=== PATIENT | male | born 1970 | race African-American/Black ===

== ENCOUNTER 2017-02-13 17:56 | Emergency (ER) | payer OTHER ==
[~2017-02-13] VITALS: Ht 170.2 cm; Wt 61.1 kg
[~2017-02-13 17:56] MED LIST: ASPIRIN E.C.81 M1 PO; LOPID600 M1 PO; Lopid PO; NOHOMEMEDS; SEROQUEL100 MG PO; SEROQUEL200 MG PO; TYLENOL325 M1 PO; ZOLOFT100 MG PO; Zoloft PO; ~No Medications
[2017-02-13] MEDS ORDERED: ZOFRAN ODT8 MG PO (22:14)
[2017-02-13] MEDS ORDERED: FIORICET,ESG1 TABLET PO (22:14)
[2017-02-13 23:29] VITALS: BP 103/64
== END 2017-02-13 23:45 | disposition home or self-care (01) ==
LOC: EME 17:56
DX: S06.2X1A Diffuse traumatic brain injury with loss of consciousness of 30 minutes or less, initial encounter (principal); Y09 Assault by unspecified means; Z72.0 Tobacco use
CPT/HCPCS: 70450; 99281; 99284

== ENCOUNTER 2017-02-17 09:12 | Emergency (ER) | payer OTHER ==
[~2017-02-17] VITALS: Ht 170.2 cm; Wt 61.0 kg
[~2017-02-17 09:12] MED LIST changes: +FIORICET,ESG1 TABLET PO; +ZOFRAN ODT8 MG PO
[2017-02-17] MEDS ORDERED: FLEXERIL10 MG PO (11:16)
[2017-02-17] MEDS ORDERED: NAPROSYN500 MG PO (11:16)
[2017-02-17 11:34] VITALS: BP 107/74
== END 2017-02-17 11:34 | disposition home or self-care (01) ==
LOC: EME 09:12
DX: S39.012A Strain of muscle, fascia and tendon of lower back, initial encounter (principal); M62.830 Muscle spasm of back; M46.1 Sacroiliitis, not elsewhere classified; Z71.6 Tobacco abuse counseling; Y09 Assault by unspecified means
CPT/HCPCS: 99281; 99284; J1885

== ENCOUNTER 2017-08-06 16:02 | Inpatient (IN) | payer OTHER ==
[~2017-08-06] VITALS: Ht 170.2 cm; Wt 59.6 kg
[~2017-08-06 16:02] MED LIST changes: +FLEXERIL10 MG PO; +NAPROSYN500 MG PO
[2017-08-06 18:11] LABS: HEMATOCRIT 41.2 % (38.0-50.0); MCH 29.1 PG (29.0-34.0); MCHC 32.5 G/DL (30.0-36.0); MCV 89.6 FL (86-99); MEAN PLAT.VOLUME 10.4 uM^3 (9.0-12.4); PLATELET COUNT 157 K/uL (156-360); RBC DIS.WIDTH-CV 13.4 % (11.8-14.6); WHITE BLOOD COUNT 9.7 K/uL (4.1-10.2)
[2017-08-06 18:22] LABS: CHLORIDE 110 mEq/L (99-109); POTASSIUM 4.1 mEq/L (3.7-5.4); SODIUM 145 mEq/L (136-147)
[2017-08-06 18:24] LABS: GLUCOSE 79 mg/dL (70-99)
[2017-08-06 18:25] LABS: ANION GAP 9 MEQ/L (2-14)
[2017-08-06 18:26] LABS: TOTAL BILIRUBIN 0.4 mg/dL (0.0-1.0)
[2017-08-06 18:27] LABS: ALKALINE PHOSPHATASE 64 IU/L (3-129); SERUM ETHYL ALCOHOL < 10 mg/dL
[2017-08-06 18:28] LABS: GFR ESTIMATE (CALCULATED) > 59 mL/min/
[2017-08-06 18:29] LABS: UREA NITROGEN (BUN) 14 mg/dL (9-23)
[2017-08-06 18:46] LABS: ADD MIUA? NO; BILIRUBIN NEGATIVE; BLOOD NEGATIVE; COLOR YELLOW ((YELLOW)); GLUCOSE (STRIP) NEGATIVE; KETONES NEGATIVE; LEUKOCYTES NEGATIVE; NITRITE NEGATIVE; PROTEIN (STRIP) NEGATIVE; SPECIFIC GRAVITY 1.025 (1.000-1.030); UCUL ADDED? NO; UROBILINOGEN 0.2 MG/DL (0.2-1.0)
[2017-08-06 19:16] VITALS: BP 121/74
[2017-08-06 19:21] VITALS: BP 105/60
[2017-08-06 19:33] LABS: AMPHETAMINE NEGATIVE (500 ng/mL); BARBITURATES NEGATIVE (200 ng/mL); BENZODIAZEPINES NEGATIVE (150 ng/mL); COCAINE PRESUMPTIVE POSITIVE (150 ng/mL); METHADONE NEGATIVE (200 ng/mL); METHAMPHETAMINE NEGATIVE (500 ng/mL); OPIATES (MORPHINE) NEGATIVE (100 ng/mL); OXYCODONE NEGATIVE (100 ng/mL); PHENCYCLIDINE NEGATIVE (25 ng/mL); PROPOXYPHENE NEGATIVE (300 ng/mL); THC CANNABINOIDS NEGATIVE (50 ng/mL); TRICYCLIC ANTIDEPRESSANTS NEGATIVE (300 ng/mL)
[2017-08-06 19:34] LABS: ADD MEDTOX COMMENT Y; INTERNAL CONTROLS VALID? YES
[2017-08-06] MEDS ORDERED: SEROQUEL200 MG PO (20:11)
[2017-08-06] MEDS ORDERED: ZOLOFT100 MG PO (20:11)
[2017-08-06] MEDS ORDERED: ZOLOFT50 MG PO (20:12)
[2017-08-06] MEDS ORDERED: MOTRIN400 MG PO (20:12)
[2017-08-07 07:58] VITALS: BP 114/63
[2017-08-07 15:40] VITALS: BP 107/61
[2017-08-08 08:04] VITALS: BP 116/70
[2017-08-08] MEDS ORDERED: SEROQUEL200 MG PO (13:16)
[2017-08-08] MEDS ORDERED: ZOLOFT100 MG PO (13:16)
== END 2017-08-08 15:05 | disposition home or self-care (01) | DRG 885 ==
LOC: EME 16:02 → EDOF 18:46 → 1WEST 18:46 → ENRESERV 19:14 → 1WEST 19:15
PROVIDERS: Emergency Medicine
DX: F33.9 Major depressive disorder, recurrent, unspecified (principal); R45.851 Suicidal ideations; F60.2 Antisocial personality disorder; F14.10 Cocaine abuse, uncomplicated; F17.200 Nicotine dependence, unspecified, uncomplicated
CPT/HCPCS: 80053; 81003; 84999; 85027; 90837; 99281; 99285; G0480

== ENCOUNTER 2017-08-09 14:18 | Emergency (ER) | payer OTHER ==
[~2017-08-09] VITALS: Ht 170.2 cm; Wt 62.8 kg
[~2017-08-09 14:18] MED LIST changes: +MOTRIN400 MG PO; +ZOLOFT50 MG PO
[2017-08-09 14:49] LABS: EOSINOPHIL (%) 0.3 % (0-5); HEMATOCRIT 39.1 % (38.0-50.0); IMMATURE GRANULOCYTE (%) 0.3 % (0.0-0.7); INSTRUMENT ABS NEUTROPHIL CT 8.2 K/uL; LYMPHOCYTE COUNT 2.7 K/uL (1.0-2.8); MCH 28.7 PG (29.0-34.0); MCHC 32.2 G/DL (30.0-36.0); MCV 89.1 FL (86-99); MEAN PLAT.VOLUME 10.2 uM^3 (9.0-12.4); MONOCYTE (%) 6.8 % (3-12); MONOCYTE COUNT 0.8 K/uL (0-0.8); NEUTROPHIL (%) 69.7 % (45-76); NEUTROPHIL COUNT 8.2 K/uL (1.8-6.4); PLATELET COUNT 165 K/uL (156-360); RBC DIS.WIDTH-CV 13.4 % (11.8-14.6); RBC DIS.WIDTH-SD 44.2 % (39-53); RED BLOOD COUNT 4.39 M/uL (4.00-5.50); WHITE BLOOD COUNT 11.8 K/uL (4.1-10.2)
[2017-08-09 14:56] LABS: CHLORIDE 108 mEq/L (99-109); POTASSIUM 3.9 mEq/L (3.7-5.4); SODIUM 144 mEq/L (136-147)
[2017-08-09 14:58] LABS: GLUCOSE 104 mg/dL (70-99)
[2017-08-09 14:59] LABS: ANION GAP 10 MEQ/L (2-14)
[2017-08-09 15:01] LABS: SERUM ETHYL ALCOHOL < 10 mg/dL
[2017-08-09 15:02] LABS: GFR ESTIMATE (CALCULATED) > 59 mL/min/
[2017-08-09 15:03] LABS: UREA NITROGEN (BUN) 13 mg/dL (9-23)
[2017-08-09 16:02] LABS: AMPHETAMINE NEGATIVE (500 ng/mL); BARBITURATES NEGATIVE (200 ng/mL); BENZODIAZEPINES NEGATIVE (150 ng/mL); COCAINE PRESUMPTIVE POSITIVE (150 ng/mL); INTERNAL CONTROLS VALID? YES; METHADONE NEGATIVE (200 ng/mL); METHAMPHETAMINE NEGATIVE (500 ng/mL); OPIATES (MORPHINE) NEGATIVE (100 ng/mL); OXYCODONE NEGATIVE (100 ng/mL); PHENCYCLIDINE NEGATIVE (25 ng/mL); PROPOXYPHENE NEGATIVE (300 ng/mL); THC CANNABINOIDS NEGATIVE (50 ng/mL); TRICYCLIC ANTIDEPRESSANTS NEGATIVE (300 ng/mL)
[2017-08-09 16:03] LABS: ADD MEDTOX COMMENT Y
[2017-08-09 17:04] VITALS: BP 102/66
== END 2017-08-09 17:08 | disposition home or self-care (01) ==
LOC: EME 14:18
PROVIDERS: Emergency Medicine
DX: F33.1 Major depressive disorder, recurrent, moderate (principal); F60.2 Antisocial personality disorder; F10.99 Alcohol use, unspecified with unspecified alcohol-induced disorder; F14.90 Cocaine use, unspecified, uncomplicated; Z76.5 Malingerer [conscious simulation]; Z63.0 Problems in relationship with spouse or partner; Z59.0 Homelessness; F17.200 Nicotine dependence, unspecified, uncomplicated
CPT/HCPCS: 80048; 84999; 85025; 90839; 99281; 99285; G0480

== ENCOUNTER 2018-05-04 12:37 | Inpatient (IN) | payer OTHER ==
[~2018-05-04] VITALS: Ht 170.2 cm; Wt 71.4 kg
[2018-05-04 13:25] LABS: HEMATOCRIT 40.8 % (38.0-50.0); HEMOGLOBIN 13.3 G/DL (12.5-16.6); MCHC 32.6 G/DL (30.0-36.0); MCV 89.1 FL (86-99); PLATELET COUNT 155 K/uL (156-360); RBC DIS.WIDTH-SD 45.9 % (39-53); RED BLOOD COUNT 4.58 M/uL (4.00-5.50); WHITE BLOOD COUNT 18.2 K/uL (4.1-10.2)
[2018-05-04 13:26] LABS: AMPHETAMINE NEGATIVE (500 ng/mL); BARBITURATES NEGATIVE (200 ng/mL); BENZODIAZEPINES NEGATIVE (150 ng/mL); BUPRENORPHINE NEGATIVE (10 ng/mL); COCAINE PRESUMPTIVE POSITIVE (150 ng/mL); METHADONE NEGATIVE (200 ng/mL); METHAMPHETAMINE NEGATIVE (500 ng/mL); OPIATES (MORPHINE) NEGATIVE (100 ng/mL); OXYCODONE NEGATIVE (100 ng/mL); PHENCYCLIDINE NEGATIVE (25 ng/mL); PROPOXYPHENE NEGATIVE (300 ng/mL); THC CANNABINOIDS NEGATIVE (50 ng/mL); TRICYCLIC ANTIDEPRESSANTS NEGATIVE (300 ng/mL)
[2018-05-04 13:36] LABS: CHLORIDE 109 mEq/L (99-109); POTASSIUM 4.3 mEq/L (3.7-5.4); SODIUM 145 mEq/L (136-147)
[2018-05-04 13:38] LABS: GLUCOSE 81 mg/dL (70-99)
[2018-05-04 13:41] LABS: SERUM ETHYL ALCOHOL < 10 mg/dL
[2018-05-04 13:42] LABS: CREATININE 1.4 mg/dL (0.6-1.3); GFR ESTIMATE (CALCULATED) > 59 mL/min/ (58.99-99999)
[2018-05-04 13:43] LABS: UREA NITROGEN (BUN) 24 mg/dL (9-23)
[2018-05-04 16:59] VITALS: BP 108/56
[2018-05-05 07:35] VITALS: BP 97/63
[2018-05-05 14:50] VITALS: BP 115/58
[2018-05-06 07:24] VITALS: BP 108/59
[2018-05-06 15:04] VITALS: BP 105/58
[2018-05-07 07:46] VITALS: BP 104/56
[2018-05-07 16:14] VITALS: BP 127/60
[2018-05-08 07:31] VITALS: BP 106/56
[2018-05-08 16:06] VITALS: BP 101/56
[2018-05-09 07:38] VITALS: BP 109/61
[2018-05-09 16:19] VITALS: BP 108/62
[2018-05-10 07:54] VITALS: BP 106/54
[2018-05-10] MEDS ORDERED: NEURONTIN300 MG PO (13:29)
[2018-05-10] MEDS ORDERED: BUSPAR10 MG PO (13:29)
[2018-05-10 16:01] VITALS: BP 114/56
[2018-05-11 07:44] VITALS: BP 99/54
[2018-05-11] MEDS ORDERED: BUSPAR10 MG PO (08:35)
[2018-05-11] MEDS ORDERED: SERTRALINE HCL100 MG PO (08:35)
[2018-05-11] MEDS ORDERED: NEURONTIN300 MG PO (08:35)
[2018-05-11] MEDS ORDERED: QUETIAPINE FUM300 MG PO (08:35)
== END 2018-05-11 12:15 | disposition other institution (70) | DRG 885 ==
LOC: EME 12:37 → EDOF 15:19 → 1WEST 15:19 → ENRESERV 16:11 → 1WEST 16:27
DX: F33.1 Major depressive disorder, recurrent, moderate (principal); F60.2 Antisocial personality disorder; F14.10 Cocaine abuse, uncomplicated; F17.200 Nicotine dependence, unspecified, uncomplicated; R45.851 Suicidal ideations; Z59.0 Homelessness; H91.91 Unspecified hearing loss, right ear; F90.9 Attention-deficit hyperactivity disorder, unspecified type
CPT/HCPCS: 71046; 80048; 84999; 85027; 90839; 97150 GO; 97166 GO; 99281; 99285; G0480; Q0177